=== PATIENT | female | born 1960 | race Caucasian/White ===

== ENCOUNTER → 2016-10-15 | Outpatient (CLI) | payer OTHER | LOC: RAD 09:25 | DX: M17.11 Unilateral primary osteoarthritis, right knee (principal); M25.461 Effusion, right knee; M25.512 Pain in left shoulder ==

== ENCOUNTER → 2016-10-17 | Outpatient (CLI) | payer OTHER | LOC: MRI 14:04 | DX: M23.51 Chronic instability of knee, right knee (principal); M13.861 Other specified arthritis, right knee; M25.461 Effusion, right knee; M65.861 Other synovitis and tenosynovitis, right lower leg ==

== ENCOUNTER → 2017-11-20 | Outpatient (CLI) | payer OTHER | LOC: BC 14:19 | DX: Z12.31 Encounter for screening mammogram for malignant neoplasm of breast (principal) ==

== ENCOUNTER → 2017-12-20 | Outpatient (CLI) | payer OTHER | LOC: ULTRA 13:05 | DX: N63.20 Unspecified lump in the left breast, unspecified quadrant (principal); R92.8 Other abnormal and inconclusive findings on diagnostic imaging of breast ==

== ENCOUNTER → 2018-07-23 | Outpatient (CLI) | payer OTHER | LOC: RAD 01:16 | DX: N60.02 Solitary cyst of left breast (principal); R92.2 Inconclusive mammogram ==

== ENCOUNTER → 2019-03-04 | Outpatient (CLI) | payer OTHER | LOC: RAD 01:37 | DX: Z12.31 Encounter for screening mammogram for malignant neoplasm of breast (principal) ==

== ENCOUNTER → 2020-03-10 | Outpatient (CLI) | payer OTHER | LOC: BC 08:53 | PROVIDERS: ATTEND Family Medicine | DX: Z12.31 Encounter for screening mammogram for malignant neoplasm of breast (principal); N64.89 Other specified disorders of breast ==